=== PATIENT | male | born 1965 | race Caucasian/White ===

== ENCOUNTER 2021-02-20 11:18 | Emergency (ER) | payer OTHER ==
[~2021-02-20] VITALS: Ht 172.7 cm; Wt 97.7 kg
[2021-02-20 11:27] VITALS: BP 132/87
[2021-02-20] MEDS ORDERED: MELO7.5T12 PO (11:30)
[2021-02-20] MEDS ORDERED: ketorolac trometh. 30mg/ml inj. IM ONE (11:55)
== END 2021-02-20 12:52 | disposition home or self-care (01) ==
LOC: ER 11:19
DX: M25.572 Pain in left ankle and joints of left foot (principal); Z79.899 Other long term (current) drug therapy
CPT/HCPCS: 96372; 99283; J1885